=== PATIENT | male | born 1940 | race Caucasian/White ===

== ENCOUNTER 2020-11-03 06:42 | Inpatient (IN) | payer OTHER ==
[~2020-11-03] VITALS: Ht 188 cm; Wt 107.3 kg
[~2020-11-03 06:42] MED LIST: AMLO-489 PO; ATOR40TA52 PO; CARV3.1240 PO; LEVO112T4 PO; LISI-716 PO
[2020-11-03] MEDS ORDERED: LIDOCAINE 2%HCL (LOCAL ANESTH.) INJ 20ML MDV ONE (07:26)
[2020-11-03] MEDS ORDERED: IODIXANOL 320MG/ML 100ML BTL IV ONE ×2 (07:27→07:48)
[2020-11-03] MEDS ORDERED: VERAPAMIL 2.5MG/ML INJ 2ML VIAL IV ONE (07:47)
[2020-11-03] MEDS ORDERED: ANGIOMAX 250 MG VIAL IV ONE (07:47)
[2020-11-03] MEDS ORDERED: fentaNYL CITRATE 100 MCG/2 ML VL ONE (07:47)
[2020-11-03] MEDS ORDERED: HEPARIN SODIUM (PORCINE) 5000 UNITS/ML 1ML VIAL ONE (07:47)
[2020-11-03] MEDS ORDERED: SODIUM CHL 0.9% 0 ML ONE (07:48)
[2020-11-03] MEDS ORDERED: MIDAZOLAM HCL 2MG/2ML 2ml VIAL (1mg/ml) ONE (07:48)
[2020-11-03] MEDS ORDERED: NITROGLYCERIN 0.4 MG SL TAB SL PRN (09:00)
[2020-11-03] MEDS ORDERED: HYDROcodone-ACET 5/325MG TAB PO PRN (09:00)
[2020-11-03] MEDS ORDERED: ONDANSETRON HCL 4 MG/2 ML VIAL IV PRN (09:00)
[2020-11-03] MEDS ORDERED: ACETAMINOPHEN 500 MG TAB PO PRN (09:00)
[2020-11-03] MEDS ORDERED: MORPHINE SULF INJ 2 MG/ML SYRINGE 1ML IV PRN (09:00)
[2020-11-03] MEDS: CARVEDILOL 3.125 MG TAB PO SCH ×2 (10:51→21:30)
[2020-11-03] MEDS: amLODIPine BESYLATE 5 MG TAB PO SCH ×2 (10:52→21:35)
[2020-11-03] MEDS: LISINOPRIL 10 MG TAB PO SCH (10:52)
[2020-11-03 12:53] VITALS: BP 120/71
[2020-11-03 17:00] VITALS: BP 113/63
[2020-11-03] MEDS: ATORVASTATIN 20 MG TAB PO SCH (21:38)
[2020-11-03 22:00] VITALS: BP 112/63
[2020-11-04 05:52] VITALS: BP 119/84
[2020-11-04] MEDS: LEVOTHYROXINE SODIUM 112 MCG TAB PO SCH (06:44)
[2020-11-04 09:00] VITALS: BP 117/56
[2020-11-04] MEDS: amLODIPine BESYLATE 5 MG TAB PO SCH ×2 (09:02→21:53)
[2020-11-04] MEDS: CARVEDILOL 3.125 MG TAB PO SCH ×2 (09:02→21:53)
[2020-11-04] MEDS: LISINOPRIL 10 MG TAB PO SCH (09:03)
[2020-11-04 13:00] VITALS: BP 96/60
[2020-11-04 16:28] VITALS: BP 110/63
[2020-11-04] MEDS: ATORVASTATIN 20 MG TAB PO SCH (21:53)
[2020-11-04 22:00] VITALS: BP 109/60
[2020-11-05 05:30] VITALS: BP 124/57
[2020-11-05] MEDS: LEVOTHYROXINE SODIUM 112 MCG TAB PO SCH (06:21)
[2020-11-05 09:00] VITALS: BP 108/55
[2020-11-05] MEDS: amLODIPine BESYLATE 5 MG TAB PO SCH (10:00)
[2020-11-05] MEDS ORDERED: CARVEDILOL 3.125 MG TAB PO SCH (10:00)
[2020-11-05] MEDS: LISINOPRIL 10 MG TAB PO SCH (10:00)
[2020-11-05 12:41] VITALS: BP 94/49
== END 2020-11-05 10:30 | disposition short-term general hospital (02) | DRG 287 ==
LOC: CATH 06:42 → TELE 08:52 → TELE-WESTW 10:43
PROVIDERS: ADMIT Internal Medicine Cardiovascular Disease; ATTEND Internal Medicine
PROC: 4A023N7 Measurement of Cardiac Sampling and Pressure, Left Heart, Percutaneous Approach (ICD-10-PCS; principal; 2020-11-03)
PROC: B211YZZ Fluoroscopy of Multiple Coronary Arteries using Other Contrast (ICD-10-PCS; 2020-11-03)
PROC: B215YZZ Fluoroscopy of Left Heart using Other Contrast (ICD-10-PCS; 2020-11-03)
DX: I25.10 Atherosclerotic heart disease of native coronary artery without angina pectoris (principal); I13.0 Hypertensive heart and chronic kidney disease with heart failure and stage 1 through stage 4 chronic kidney disease, or unspecified chronic kidney disease; E85.4 Organ-limited amyloidosis; I50.9 Heart failure, unspecified; E03.9 Hypothyroidism, unspecified; Z96.652 Presence of left artificial knee joint; Z20.822 Contact with and (suspected) exposure to COVID-19; I43 Cardiomyopathy in diseases classified elsewhere; E78.5 Hyperlipidemia, unspecified; N18.2 Chronic kidney disease, stage 2 (mild)
CPT/HCPCS: 99152; G0378; J2250; Q9967

== ENCOUNTER 2021-11-08 06:09 | Inpatient (IN) | payer OTHER ==
[~2021-11-08] VITALS: Ht 188 cm; Wt 107.0 kg
[~2021-11-08 06:09] MED LIST changes: -AMLO-489 PO; +ASPI1TAB20 PO; -CARV3.1240 PO; +CARV6.2551 PO; +FERR-7 PO; +FURO40TA4 PO; -LEVO112T4 PO; +LEVO150C3 PO; +POTA-220 PO; +SACU1TAB PO; +WARF3TAB22 PO; +WARF5TAB71 PO
[2021-11-08] MEDS ORDERED: ceFAZolin 1GM/50ML 100 ML IV ONE (07:40)
[2021-11-08] MEDS ORDERED: ACETAMINOPHEN IV 100 ML IV ONE (07:40)
[2021-11-08 07:42] LABS: INR 1.04 (0.9-1.15); Partial Thromboplastin Time 28.7 sec (24.6-33.4)
[2021-11-08] MEDS ORDERED: PREGABALIN CAPSULE 75 MG CAP ONE (07:52)
[2021-11-08] MEDS ORDERED: CELECOXIB 100 MG CAP PO ONE (08:00)
[2021-11-08] MEDS ORDERED: PREGABALIN CAPSULE 75 MG CAP PO ONE (08:00)
[2021-11-08] MEDS ORDERED: ACETAMINOPHEN IV 1000 MG/100ML (10MG/ML) IV ONE (08:00)
[2021-11-08] MEDS ORDERED: CELECOXIB 100 MG CAP ONE (08:02)
[2021-11-08] MEDS ORDERED: MORPHINE SULF PF 5 MG/10 ML VIAL ONE (09:57)
[2021-11-08] MEDS ORDERED: fentaNYL CITRATE 100 MCG/2 ML VL ONE (09:57)
[2021-11-08] MEDS ORDERED: MIDAZOLAM HCL 2MG/2ML 2ml VIAL (1mg/ml) ONE (09:57)
[2021-11-08] MEDS ORDERED: ePHEDrine SULFATE 50 MG/ML AMP ONE (09:58)
[2021-11-08] MEDS ORDERED: ONDANSETRON HCL 4 MG/2 ML VIAL ONE (09:58)
[2021-11-08] MEDS ORDERED: GLYCOPYRROLATE 0.2 MG/ML 1ML VIAL ONE (09:58)
[2021-11-08] MEDS ORDERED: PROPOFOL 10 MG/ML 20 ML IV ONE (09:58)
[2021-11-08] MEDS ORDERED: BUPIVACAINE 0.5% P/F INJ 10 ML VIAL ONE (10:45)
[2021-11-08] MEDS ORDERED: ROPIVACAINE 0.5% (5MG/ML) 20ML AMPULE IJ ONE (10:48)
[2021-11-08] MEDS ORDERED: TRANEXAMIC ACID 20 ML ONE (10:48)
[2021-11-08] MEDS ORDERED: VANCOMYCIN HCL 1000 MG VL ONE (10:49)
[2021-11-08] MEDS ORDERED: KETOROLAC TROMETH 30 MG/ML 1ML VIAL ONE (10:58)
[2021-11-08] MEDS ORDERED: ceFAZolin 1GM/50ML 50 ML IV SCH ×2 (14:00→18:00)
[2021-11-08] MEDS ORDERED: ONDANSETRON HCL 4 MG/2 ML VIAL IV PRN ×3 (14:00→14:45)
[2021-11-08] MEDS ORDERED: MORPHINE SULFATE INJ 2 MG/ml SYRG IV PRN (14:00)
[2021-11-08] MEDS ORDERED: ACETAMINOPHEN 325 MG TAB PO PRN (14:00)
[2021-11-08] MEDS ORDERED: BISACODYL 5 MG EC TAB PO PRN (14:00)
[2021-11-08] MEDS ORDERED: HYDROmorphone HCL 2 MG/ML VL/or syr IV PRN (14:00)
[2021-11-08] MEDS ORDERED: NITROGLYCERIN 0.4 MG SL TAB SL PRN (14:00)
[2021-11-08] MEDS ORDERED: ACCU-CHEK COMFORT CURVE STRIP VI ONE (14:45)
[2021-11-08] MEDS ORDERED: NALOXONE HCL 0.4 MG/ML VIAL IV PRN (14:45)
[2021-11-08] MEDS ORDERED: diphenhdrAMINE HCL 50 MG/1 ML VL IV PRN (14:45)
[2021-11-08] MEDS ORDERED: DexAMETHasone SOD PHOS 10MG/1ML VIAL INJ IV PRN (14:45)
[2021-11-08] MEDS: LACTATED RINGER'S 1,000 ML IV SCH (15:30)
[2021-11-08] MEDS: SODIUM CHLOR 0.9% PF (SALINE LOCK) 10ML VIAL/SYR IV SCH ×2 (16:35→21:52)
[2021-11-08] MEDS ORDERED: WARFARIN SODIUM 5 MG TAB PO ONE (17:00)
[2021-11-08 19:00] VITALS: BP_SYST 97; BP_DIAS 61; BP_DIAS 67
[2021-11-08] MEDS: ceFAZolin 1GM/50ML 50 ML IV SCH (20:19)
[2021-11-08 20:26] VITALS: BP_SYST 87; BP_SYST 97; BP_DIAS 53; BP_DIAS 57; BP_DIAS 61
[2021-11-08 21:26] VITALS: BP 95/53
[2021-11-08] MEDS: DOCUSATE SOD 100 MG CAP PO SCH (21:52)
[2021-11-08] MEDS: CARVEDILOL 3.125 MG TAB PO SCH (21:53)
[2021-11-08 22:00] VITALS: BP 90/54
[2021-11-08 22:26] VITALS: BP 90/54
[2021-11-08 23:26] VITALS: BP 93/54
[2021-11-09] VITALS (16 sets, daily range): BP systolic 80–114; BP diastolic 41–70
[2021-11-09] MEDS: LACTATED RINGER'S 1,000 ML IV SCH ×3 (00:17→20:00)
[2021-11-09] MEDS: ceFAZolin 1GM/50ML 50 ML IV SCH ×2 (02:54→09:12)
[2021-11-09] MEDS ORDERED: SODIUM CHLORIDE 0.9% 1,000 ML IV ONE ×2 (04:45→22:00)
[2021-11-09 05:42] LABS: Hematocrit 28.7 % (41.0-53.0); Hemoglobin 9.2 g/dL (13.5-17.5)
[2021-11-09] MEDS: SODIUM CHLOR 0.9% PF (SALINE LOCK) 10ML VIAL/SYR IV SCH ×3 (05:53→23:22)
[2021-11-09 05:57] LABS: Albumin 2.3 g/dL (3.4-5.0); Potassium 4.8 mmol/L (3.5-5.1)
[2021-11-09 06:00] LABS: BUN/Creatinine Ratio 26.4; Bilirubin, Total 0.5 mg/dL (0.2-1.0); Total Protein 5.2 g/dL (6.4-8.2)
[2021-11-09] MEDS: CARVEDILOL 3.125 MG TAB PO SCH ×3 (06:00→22:00)
[2021-11-09] MEDS: DOCUSATE SOD 100 MG CAP PO SCH ×2 (09:11→22:00)
[2021-11-09] MEDS: FERROUS SULFATE 325mg EC TAB PO SCH (09:11)
[2021-11-09] MEDS: ATORVASTATIN 20 MG TAB PO SCH (09:11)
[2021-11-09] MEDS: SACUBITRIL-VALSARTAN 24mg/26mg TAB PO SCH (09:11)
[2021-11-09] MEDS: POTASSIUM CHL 20 Meq TABLET PO SCH (10:00)
[2021-11-09] MEDS ORDERED: LISINOPRIL 10 MG TAB PO SCH (10:00)
[2021-11-09] MEDS: FUROSEMIDE 40 MG TAB PO SCH (10:00)
[2021-11-09 10:31] LABS: INR 1.12 (0.9-1.15); Partial Thromboplastin Time 27.9 sec (24.6-33.4)
[2021-11-09] MEDS ORDERED: WARFARIN SODIUM 5 MG TAB PO ONE (17:00)
[2021-11-09] MEDS ORDERED: TEMAZEPAM 15 MG CAP PO PRN (22:00)
[2021-11-10] VITALS (9 sets, daily range): BP systolic 91–121; BP diastolic 55–64
[2021-11-10 05:35] LABS: Basophils # (auto) 0 10 ^3/uL (0-0.2); Basophils % (auto) 0.3 % (0.0-2.0); Eosinophils # (auto) 0 10 ^3/uL (0-0.8); Eosinophils % (auto) 0.3 % (0.0-7.0); Hematocrit 25.1 % (41.0-53.0); Hemoglobin 8.1 g/dL (13.5-17.5); Lymphocytes # (auto) 3.5 10 ^3/uL (0.4-5.4); Lymphocytes % (auto) 40.1 % (10.0-50.0); Mean Corpuscular Hemoglobin 32.3 pg (28.0-32.0); Mean Corpuscular Hgb Conc. 32.2 g/dL (32.0-36.0); Mean Corpuscular Volume 100.2 fL (80.0-100.0); Monocytes # (auto) 1.1 10 ^3/uL (0-1.3); Monocytes % (auto) 12.4 % (0.0-12.0); Neutrophils # (auto) 4.1 10 ^3/uL (1.6-8.6); Neutrophils % (auto) 46.9 % (37.0-80.0); Red Blood Cells 2.51 10^6/uL (4.5-5.90); Red Cell Distribution Width 15.6 % (11.8-14.3); White Blood Cell 8.8 10^3/uL (4.4-10.8)
[2021-11-10 05:47] LABS: Albumin 2.4 g/dL (3.4-5.0); Calcium 8.1 mg/dL (8.5-10.1); Potassium 4.6 mmol/L (3.5-5.1)
[2021-11-10 05:51] LABS: BUN/Creatinine Ratio 28.2; Bilirubin, Total 0.4 mg/dL (0.2-1.0); Total Protein 5.5 g/dL (6.4-8.2)
[2021-11-10 05:59] LABS: INR 1.25 (0.9-1.15); Partial Thromboplastin Time 28.9 sec (24.6-33.4)
[2021-11-10] MEDS: CARVEDILOL 3.125 MG TAB PO SCH (06:00)
[2021-11-10] MEDS: LACTATED RINGER'S 1,000 ML IV SCH (06:23)
[2021-11-10] MEDS: SODIUM CHLOR 0.9% PF (SALINE LOCK) 10ML VIAL/SYR IV SCH ×3 (06:23→21:30)
[2021-11-10] MEDS: SACUBITRIL-VALSARTAN 24mg/26mg TAB PO SCH (08:36)
[2021-11-10] MEDS: FERROUS SULFATE 325mg EC TAB PO SCH (08:36)
[2021-11-10] MEDS: DOCUSATE SOD 100 MG CAP PO SCH ×2 (08:36→21:30)
[2021-11-10] MEDS: POTASSIUM CHL 20 Meq TABLET PO SCH (08:36)
[2021-11-10] MEDS: ATORVASTATIN 20 MG TAB PO SCH (08:37)
[2021-11-10] MEDS: FUROSEMIDE 40 MG TAB PO SCH (08:37)
[2021-11-10] MEDS: OXYCODONE W/ ACETAMINOPHEN 5/325MG TABLET PO PRN (08:37)
[2021-11-10] MEDS ORDERED: ALBUMIN 25% 100 ML IV ONE (11:15)
[2021-11-10] MEDS ORDERED: WARFARIN SODIUM 5 MG TAB PO ONE (17:00)
[2021-11-11 05:00] VITALS: BP 107/66
[2021-11-11] MEDS: SODIUM CHLOR 0.9% PF (SALINE LOCK) 10ML VIAL/SYR IV SCH ×2 (05:25→13:41)
[2021-11-11 06:36] LABS: Basophils # (auto) 0 10 ^3/uL (0-0.2); Basophils % (auto) 0.3 % (0.0-2.0); Eosinophils # (auto) 0.1 10 ^3/uL (0-0.8); Eosinophils % (auto) 0.7 % (0.0-7.0); Hematocrit 27.8 % (41.0-53.0); Hemoglobin 9.3 g/dL (13.5-17.5); Lymphocytes # (auto) 3.7 10 ^3/uL (0.4-5.4); Lymphocytes % (auto) 37.3 % (10.0-50.0); Mean Corpuscular Hemoglobin 31.5 pg (28.0-32.0); Mean Corpuscular Hgb Conc. 33.3 g/dL (32.0-36.0); Mean Corpuscular Volume 94.7 fL (80.0-100.0); Monocytes # (auto) 1.2 10 ^3/uL (0-1.3); Monocytes % (auto) 11.5 % (0.0-12.0); Neutrophils % (auto) 50.2 % (37.0-80.0); Nucleated Red Blood Cells % 0.1 %; Red Blood Cells 2.94 10^6/uL (4.5-5.90); Red Cell Distribution Width 15.9 % (11.8-14.3)
[2021-11-11 06:48] LABS: INR 1.37 (0.9-1.15); Partial Thromboplastin Time 29.7 sec (24.6-33.4)
[2021-11-11 07:00] LABS: BUN/Creatinine Ratio 28.2; Calcium 8.2 mg/dL (8.5-10.1); Potassium 4.2 mmol/L (3.5-5.1)
[2021-11-11] MEDS: OXYCODONE W/ ACETAMINOPHEN 5/325MG TABLET PO PRN (09:02)
[2021-11-11 09:18] VITALS: BP 140/75
[2021-11-11] MEDS: ATORVASTATIN 20 MG TAB PO SCH (09:52)
[2021-11-11] MEDS: POTASSIUM CHL 20 Meq TABLET PO SCH (09:52)
[2021-11-11] MEDS: DOCUSATE SOD 100 MG CAP PO SCH (09:53)
[2021-11-11] MEDS: FERROUS SULFATE 325mg EC TAB PO SCH (09:53)
[2021-11-11] MEDS: FUROSEMIDE 40 MG TAB PO SCH (09:55)
[2021-11-11 11:37] VITALS: BP 122/52
[2021-11-11 13:04] VITALS: BP 117/63
[2021-11-11] MEDS ORDERED: WARFARIN SODIUM 5 MG TAB PO ONE (17:00)
== END 2021-11-11 15:24 | disposition home health service (06) | DRG 470 ==
LOC: SUR 06:09 → TELE 13:55 → TELE-EAST 19:21
PROVIDERS: ADMIT Orthopaedic Surgery Adult Reconstructive Orthopaedic Surgery; ATTEND Orthopaedic Surgery Adult Reconstructive Orthopaedic Surgery
PROC: 0SRB0JA Replacement of Left Hip Joint with Synthetic Substitute, Uncemented, Open Approach (ICD-10-PCS; principal; 2021-11-08 12:13)
PROC: 30233N1 Transfusion of Nonautologous Red Blood Cells into Peripheral Vein, Percutaneous Approach (ICD-10-PCS; 2021-11-10)
DX: M16.12 Unilateral primary osteoarthritis, left hip (principal); I42.0 Dilated cardiomyopathy; E44.1 Mild protein-calorie malnutrition; I50.9 Heart failure, unspecified; Z20.822 Contact with and (suspected) exposure to COVID-19; Z82.49 Family history of ischemic heart disease and other diseases of the circulatory system
CPT/HCPCS: 36415; 72170; 80048; 80053; 82962; 85014; 85018; 85025; 85610; 85730; 86850; 86900; 86901; 86920; 97110; 97116; 97163; 97530; C1776; G0378; J0131; J0690; J1885; J2250; J2405; J2704; J3490